=== PATIENT | male | born 1945 | race Caucasian/White ===

== ENCOUNTER → 2019-03-06 | Outpatient (CLI) | payer MEDICARE ==
[~2019-03-06] MED LIST: REGADENOSON 0.4 MG/5 ML SYRINGE ONE
== END | disposition home or self-care (01) ==
LOC: CFH 07:57
PROVIDERS: ATTEND Internal Medicine Cardiovascular Disease
DX: I48.91 Unspecified atrial fibrillation (principal); R94.31 Abnormal electrocardiogram [ECG] [EKG]
CPT/HCPCS: 78452; 93017; A9502; J2785

== ENCOUNTER 2019-04-10 11:58 | Outpatient (CLI) | payer MEDICARE | END 2019-04-10 23:59 | disposition home or self-care (01) | LOC: CVU 11:58 | PROVIDERS: ATTEND Internal Medicine Cardiovascular Disease | DX: I06.1 Rheumatic aortic insufficiency (principal); I06.0 Rheumatic aortic stenosis; R94.31 Abnormal electrocardiogram [ECG] [EKG]; I50.9 Heart failure, unspecified | CPT/HCPCS: 93306 ==

== ENCOUNTER 2019-04-23 19:38 | Inpatient (IN) | payer MEDICARE ==
[~2019-04-23] VITALS: Ht 190.5 cm; Wt 114.4 kg
[2019-04-23] MEDS ORDERED: SPIR25TA5 PO (20:08)
[2019-04-23] MEDS ORDERED: TAMS-11 PO (20:08)
[2019-04-23] MEDS ORDERED: METO25TA35 PO (20:09)
[2019-04-23] MEDS ORDERED: FURO20TA3 PO (20:16)
[2019-04-23] MEDS ORDERED: VIT1CAPS42 PO (20:16)
[2019-04-23] MEDS ORDERED: MELA1TAB22 PO (20:17)
--- NOTE | 2019-04-23 20:25 | NUR ---
THIS IS A 73 YO MALE BIB EMS FROM [place] FOR INCREASED SOB/WORK OF BREATHING "I KNOW THERE'S FLUID IN MY LUNGS AND IN MY BELLY". PATIENT WAS HOSPITALIZED IN DECEMBER FOR PNA AND SEPSIS, THEN HOSPITALIZED LATER ON FOR INCREASED FLUID THROUGHOUT BODY, DENIES CHF. ABDOMEN IS DISTENDED AND FIRM, APPEARS TO BE ASCITIC. PATIENT A&OX4, TACHYPNIC AT 26 BREATHS A MINUTE, LUNG SOUNDS CLEAR IN LEFT, UPPER LOBES IN RIGHT SIDE CLEAR, RIGHT LOWER LOBE IS DIMINISHED/ABSENT, VERY MINIMAL BREATHS SOUNDS AUSCULTATED. STATES COUGH STARTED 2 DAYS AGO. NO FEVERS AT HOME, NO FEVER HERE. ALL MONITORING IN PLACE, SINUS RHYTHM ON MONITOR. CALL LIGHT IN REACH.
[2019-04-23] MEDS ORDERED: SODIUM CHLORIDE FLUSH 10ML SYR IVF ONE (20:30)
--- NOTE | 2019-04-23 21:00 | NUR ---
CONSUMER RELATIONS COMPLAINT CLERK IN ROOM. PATIENT RESTING ON DONN CHAHAL, NAD NOTED, CALL LIGHT IN REACH
[2019-04-23 21:26] LABS: BASOPHILS # (AUTO) 0.04 x10^3/uL (0-0.1); BASOPHILS % (AUTO) 0 % (0-1); EOSINOPHILS # (AUTO) 0.13 x10^3/uL (0-0.4); EOSINOPHILS % (AUTO) 1 % (1-7); LYMPHOCYTES # (AUTO) 0.46 x10^3/uL (1-3.4); LYMPHOCYTES % (AUTO) 4 % (22-44); MD NO; MEAN CORPUSCULAR HEMOGLOBIN 29.8 pg (27.5-34.5); MEAN CORPUSCULAR HGB CONC 34.2 g/dL (33.2-36.2); MEAN CORPUSCULAR VOLUME 87.1 fL (81-97); MEAN PLATELET VOLUME 7.6 fL (7.4-10.4); MONOCYTES # (AUTO) 0.77 x10^3/uL (0.2-0.8); MONOCYTES % (AUTO) 6 % (2-9); NEUTROPHILS # (AUTO) 11.57 x10^3/uL (1.8-6.8); NEUTROPHILS % (AUTO) 89 % (42-75); PLATELET COUNT 403 x10^3/uL (130-400); RED CELL DISTRIBUTION WIDTH 14.1 % (9.4-14.8)
[2019-04-23 21:29] LABS: ALBUMIN 3.2 g/dL (3.4-5.0); ANION GAP 11 mmol/L (5-15); CALCIUM 11.9 mg/dL (8.5-10.1); CHLORIDE 101 mmol/L (98-107)
[2019-04-23 21:34] LABS: CREATININE 1.32 mg/dL (0.7-1.3)
--- NOTE | 2019-04-23 21:37 | NUR ---
BGL 68. PATIENT PROVIDED WITH JUICE AND SANDWICH.
[2019-04-23 21:38] LABS: INTERNATIONAL NORMALIZED RATIO 1.01 (0.93-1.1); PROTHROMBIN TIME 10.7 Seconds (9.6-11.5)
--- NOTE | 2019-04-23 22:24 | NUR ---
PATIENT RESTING ON DONN CHAHAL NAD AT THIS TIME, CALL LIGHT IN REACH
[2019-04-23] MEDS ORDERED: SODIUM CHLORIDE FLUSH 10ML SYR IVF PRN (22:30)
--- NOTE | 2019-04-23 22:52 | NUR ---
REPORT GIVEN TO PEACE SOSA. SHEILA STATES SHE IS TAKING REPORT FOR PRIMARY RN JOE.
[2019-04-23 23:35] VITALS: BP 125/70
[2019-04-24] MEDS ORDERED: LIDODERM 5% PATCH TD PRN (01:00)
[2019-04-24] MEDS ORDERED: ONDANSETRON 2MG/ML, 2ML IVPush PRN (01:00)
[2019-04-24] MEDS ORDERED: TEMAZEPAM 15 MG CAPSULE PO PRN (01:00)
[2019-04-24] MEDS ORDERED: BISACODYL 10 MG SUPP PR PRN (01:00)
[2019-04-24 01:30] VITALS: BP 103/64
[2019-04-24] MEDS: METRONIDAZOLE PMX 500MG/100ML 100 ML IV SCH ×4 (03:05→20:36)
[2019-04-24 06:46] VITALS: BP 118/71
[2019-04-24] MEDS ORDERED: ACETAMINOPHEN 325 MG TABLET PO PRN (07:00)
[2019-04-24] MEDS: HEPARIN 5,000 UNITS/ML, 1ML SQ SCH ×3 (07:00→23:00)
[2019-04-24] MEDS ORDERED: METOPROLOL TARTRATE 50 MG TAB PO SCH (08:00)
[2019-04-24 08:22] LABS: BASOPHILS # (AUTO) 0.03 x10^3/uL (0-0.1); BASOPHILS % (AUTO) 0 % (0-1); EOSINOPHILS # (AUTO) 0.23 x10^3/uL (0-0.4); EOSINOPHILS % (AUTO) 2 % (1-7); LYMPHOCYTES # (AUTO) 0.45 x10^3/uL (1-3.4); LYMPHOCYTES % (AUTO) 4 % (22-44); MD NO; MEAN CORPUSCULAR HEMOGLOBIN 29.7 pg (27.5-34.5); MEAN CORPUSCULAR HGB CONC 33.5 g/dL (33.2-36.2); MEAN CORPUSCULAR VOLUME 88.5 fL (81-97); MEAN PLATELET VOLUME 7.4 fL (7.4-10.4); MONOCYTES # (AUTO) 0.82 x10^3/uL (0.2-0.8); MONOCYTES % (AUTO) 7 % (2-9); NEUTROPHILS % (AUTO) 88 % (42-75); PLATELET COUNT 361 x10^3/uL (130-400); RED CELL DISTRIBUTION WIDTH 14.1 % (9.4-14.8)
[2019-04-24 08:34] LABS: ALANINE AMINOTRANSFERASE 18 U/L (12-78); ANION GAP 9 mmol/L (5-15); CALCIUM 10.9 mg/dL (8.5-10.1); CHLORIDE 104 mmol/L (98-107); CREATININE 1.47 mg/dL (0.7-1.3)
[2019-04-24 08:36] LABS: ALKALINE PHOSPHATASE 121 U/L (45-117); BILIRUBIN,TOTAL 0.4 mg/dL (0.2-1.0); TOTAL PROTEIN 7.7 g/dL (6.4-8.2)
[2019-04-24] MEDS ORDERED: SPIRONOLACTONE 25 MG TABLET PO SCH (09:00)
[2019-04-24] MEDS ORDERED: FUROSEMIDE 40 MG TABLET PO SCH ×2 (09:00)
[2019-04-24] MEDS ORDERED: LIDOCAINE 1%, 10ML ONE ×2 (09:11→09:58)
[2019-04-24 12:21] VITALS: BP 124/68
[2019-04-24] MEDS: CARVEDILOL 6.25 MG TABLET PO SCH (18:10)
[2019-04-24 19:03] VITALS: BP 112/67
[2019-04-24] MEDS: TAMSULOSIN 0.4 MG CAP.ER.24H PO SCH (22:18)
[2019-04-25] VITALS (8 sets, daily range): BP systolic 94–136; BP diastolic 51–76
[2019-04-25] MEDS: METRONIDAZOLE PMX 500MG/100ML 100 ML IV SCH ×4 (02:19→20:27)
[2019-04-25 05:58] LABS: BASOPHILS # (AUTO) 0.04 x10^3/uL (0-0.1); BASOPHILS % (AUTO) 0 % (0-1); EOSINOPHILS # (AUTO) 0.26 x10^3/uL (0-0.4); EOSINOPHILS % (AUTO) 2 % (1-7); LYMPHOCYTES # (AUTO) 0.44 x10^3/uL (1-3.4); LYMPHOCYTES % (AUTO) 3 % (22-44); MD NO; MEAN CORPUSCULAR HEMOGLOBIN 29.9 pg (27.5-34.5); MEAN CORPUSCULAR HGB CONC 33.9 g/dL (33.2-36.2); MEAN CORPUSCULAR VOLUME 88.1 fL (81-97); MONOCYTES # (AUTO) 0.64 x10^3/uL (0.2-0.8); MONOCYTES % (AUTO) 5 % (2-9); NEUTROPHILS # (AUTO) 11.61 x10^3/uL (1.8-6.8); NEUTROPHILS % (AUTO) 89 % (42-75); PLATELET COUNT 341 x10^3/uL (130-400); RED CELL DISTRIBUTION WIDTH 14.1 % (9.4-14.8)
[2019-04-25] MEDS: CARVEDILOL 6.25 MG TABLET PO SCH ×2 (05:59→17:17)
[2019-04-25 06:10] LABS: ALBUMIN 2.9 g/dL (3.4-5.0); CHLORIDE 102 mmol/L (98-107)
[2019-04-25 06:14] LABS: ALANINE AMINOTRANSFERASE 14 U/L (12-78); ALKALINE PHOSPHATASE 119 U/L (45-117); ANION GAP 10 mmol/L (5-15); BILIRUBIN,TOTAL 0.4 mg/dL (0.2-1.0); CALCIUM 11.3 mg/dL (8.5-10.1); CREATININE 1.32 mg/dL (0.7-1.3); TOTAL PROTEIN 7.9 g/dL (6.4-8.2)
[2019-04-25] MEDS: HEPARIN 5,000 UNITS/ML, 1ML SQ SCH ×3 (07:00→22:05)
[2019-04-25] MEDS: FUROSEMIDE 20 MG TABLET PO SCH (07:49)
[2019-04-25] MEDS: SODIUM CHLORIDE 0.9% 1,000 ML IV SCH (08:06)
[2019-04-25] MEDS ORDERED: FUROSEMIDE 40 MG TABLET PO SCH (09:00)
[2019-04-25] MEDS ORDERED: OMNIPAQUE 350 MG/ML, 100ML BOTTLE ONE (10:17)
[2019-04-25] MEDS: TAMSULOSIN 0.4 MG CAP.ER.24H PO SCH (20:27)
[2019-04-26] MEDS: SODIUM CHLORIDE 0.9% 1,000 ML IV SCH (00:30)
[2019-04-26 00:51] VITALS: BP 109/65
[2019-04-26] MEDS: METRONIDAZOLE PMX 500MG/100ML 100 ML IV SCH (03:03)
[2019-04-26 04:55] LABS: BASOPHILS # (AUTO) 0.03 x10^3/uL (0-0.1); BASOPHILS % (AUTO) 0 % (0-1); EOSINOPHILS % (AUTO) 2 % (1-7); LYMPHOCYTES # (AUTO) 0.35 x10^3/uL (1-3.4); LYMPHOCYTES % (AUTO) 3 % (22-44); MD NO; MEAN CORPUSCULAR HEMOGLOBIN 30.1 pg (27.5-34.5); MEAN CORPUSCULAR HGB CONC 33.8 g/dL (33.2-36.2); MEAN PLATELET VOLUME 7.7 fL (7.4-10.4); MONOCYTES # (AUTO) 0.62 x10^3/uL (0.2-0.8); MONOCYTES % (AUTO) 5 % (2-9); NEUTROPHILS # (AUTO) 11.34 x10^3/uL (1.8-6.8); NEUTROPHILS % (AUTO) 90 % (42-75); PLATELET COUNT 358 x10^3/uL (130-400); RED BLOOD COUNT 4.02 x10^6/uL (4.38-5.82); RED CELL DISTRIBUTION WIDTH 13.7 % (9.4-14.8)
[2019-04-26 05:02] LABS: ALBUMIN 2.8 g/dL (3.4-5.0); ANION GAP 9 mmol/L (5-15); CALCIUM 11.4 mg/dL (8.5-10.1); CHLORIDE 102 mmol/L (98-107)
[2019-04-26 05:05] LABS: ALANINE AMINOTRANSFERASE 13 U/L (12-78); ALKALINE PHOSPHATASE 114 U/L (45-117); BILIRUBIN,TOTAL 0.2 mg/dL (0.2-1.0); CREATININE 1.16 mg/dL (0.7-1.3); TOTAL PROTEIN 7.4 g/dL (6.4-8.2)
[2019-04-26] MEDS: CARVEDILOL 6.25 MG TABLET PO SCH ×2 (06:32→17:30)
[2019-04-26] MEDS: HEPARIN 5,000 UNITS/ML, 1ML SQ SCH ×3 (06:36→23:00)
[2019-04-26 07:05] VITALS: BP 119/68
[2019-04-26] MEDS: FUROSEMIDE 20 MG TABLET PO SCH (08:57)
[2019-04-26] MEDS: TAMSULOSIN 0.4 MG CAP.ER.24H PO SCH (08:58)
[2019-04-26 14:18] VITALS: BP 116/68
[2019-04-26] MEDS ORDERED: PAMIDRONATE 30 MG in SODIUM CHLORIDE 0.9% 250 ML IV SCH (15:00)
[2019-04-26] MEDS ORDERED: PAMIDRONATE 3 MG/ML, 10ML IV SCH (15:00)
[2019-04-26 19:17] VITALS: BP 102/64
[2019-04-27] VITALS: BP 99/61
[2019-04-27] MEDS ORDERED: CALCIUM CARBONATE 500 MG TAB.CHEW PO PRN (00:30)
[2019-04-27 06:04] LABS: BASOPHILS # (AUTO) 0.02 x10^3/uL (0-0.1); BASOPHILS % (AUTO) 0 % (0-1); EOSINOPHILS # (AUTO) 0.23 x10^3/uL (0-0.4); EOSINOPHILS % (AUTO) 2 % (1-7); LYMPHOCYTES # (AUTO) 0.45 x10^3/uL (1-3.4); LYMPHOCYTES % (AUTO) 3 % (22-44); MD NO; MEAN CORPUSCULAR HEMOGLOBIN 29.9 pg (27.5-34.5); MEAN CORPUSCULAR HGB CONC 33.8 g/dL (33.2-36.2); MEAN CORPUSCULAR VOLUME 88.4 fL (81-97); MEAN PLATELET VOLUME 7.9 fL (7.4-10.4); MONOCYTES # (AUTO) 0.72 x10^3/uL (0.2-0.8); MONOCYTES % (AUTO) 5 % (2-9); NEUTROPHILS # (AUTO) 12.06 x10^3/uL (1.8-6.8); NEUTROPHILS % (AUTO) 90 % (42-75); PLATELET COUNT 365 x10^3/uL (130-400); RED BLOOD COUNT 4.03 x10^6/uL (4.38-5.82); RED CELL DISTRIBUTION WIDTH 14.2 % (9.4-14.8)
[2019-04-27 06:06] LABS: ANION GAP 10 mmol/L (5-15); CALCIUM 12.2 mg/dL (8.5-10.1); CHLORIDE 103 mmol/L (98-107)
[2019-04-27 06:07] LABS: CREATININE 1.27 mg/dL (0.7-1.3)
[2019-04-27] MEDS: HEPARIN 5,000 UNITS/ML, 1ML SQ SCH (06:27)
[2019-04-27 06:28] VITALS: BP 120/69
[2019-04-27] MEDS: CARVEDILOL 6.25 MG TABLET PO SCH (06:31)
[2019-04-27 06:51] VITALS: BP 106/65
[2019-04-27] MEDS: FUROSEMIDE 20 MG TABLET PO SCH (08:35)
[2019-04-27] MEDS ORDERED: CALCITONIN SALMON 200 UNITS/ML, 2ML IM ONE (09:30)
[2019-04-27] MEDS ORDERED: FURO20TA3 PO ×2 (10:11)
[2019-04-27] MEDS ORDERED: SPIR25TA5 PO (10:11)
[2019-04-27] MEDS ORDERED: CARV6.2512 PO ×2 (10:11)
== END 2019-04-27 13:30 | disposition home or self-care (01) | DRG 683 ==
LOC: ED 22:47 → EDIP 23:16 → 3N 23:28
PROVIDERS: ADMIT Internal Medicine; ATTEND Internal Medicine
PROC: 0W993ZZ Drainage of Right Pleural Cavity, Percutaneous Approach (ICD-10-PCS; principal; 2019-04-24)
PROC: 0W9G3ZZ Drainage of Peritoneal Cavity, Percutaneous Approach (ICD-10-PCS; 2019-04-24)
DX: N17.0 Acute kidney failure with tubular necrosis (principal); K76.6 Portal hypertension; J91.8 Pleural effusion in other conditions classified elsewhere; E87.1 Hypo-osmolality and hyponatremia; R18.8 Other ascites; C88.0 Waldenstrom macroglobulinemia; E87.5 Hyperkalemia; I50.9 Heart failure, unspecified; D64.9 Anemia, unspecified; E16.2 Hypoglycemia, unspecified; E66.9 Obesity, unspecified; Z68.31 Body mass index [BMI] 31.0-31.9, adult; E83.52 Hypercalcemia; I11.0 Hypertensive heart disease with heart failure; I48.91 Unspecified atrial fibrillation; N40.0 Benign prostatic hyperplasia without lower urinary tract symptoms; Z80.8 Family history of malignant neoplasm of other organs or systems; Z85.828 Personal history of other malignant neoplasm of skin; Z96.642 Presence of left artificial hip joint
CPT/HCPCS: 32555; 36415; 49083; 71045; 74177; 80048; 80053; 82040; 82042; 82784; 82945; 83615; 83880; 83883; 83986; 84155; 84157; 84165; 85025; 85610; 85730; 87070; 87205; 88112; 88305; 88341; 88342; 89051; 93005; 99285; G0378; J2405; Q9967; J0630; J2430; J7030; J7050

== ENCOUNTER 2019-05-03 13:21 | Inpatient (IN) | payer MEDICARE ==
[~2019-05-03] VITALS: Ht 190.5 cm; Wt 109.9 kg
[~2019-05-03 13:21] MED LIST changes: +CARV6.2512 PO; +FURO20TA3 PO; +MELA1TAB22 PO; +METO25TA35 PO; -REGADENOSON 0.4 MG/5 ML SYRINGE ONE; +SPIR25TA5 PO; +TAMS-11 PO; +VIT1CAPS42 PO
--- NOTE | 2019-05-03 14:14 | NUR ---
PT CAME IN CO OF SOB, FATIGUE, AND TROUBLE BREATHING. PT SAYS "MY CHEST AND ABDOMEN HAS FILLED UP WITH FLUID". MD IS BEDSIDE FOR ASSESSMENT. PT IS CONNECTED TO [employer]ID[employer] MONITOR AND PULSE OX.
[2019-05-03] MEDS ORDERED: SODIUM CHLORIDE FLUSH 10ML SYR IVF ONE (14:30)
[2019-05-03 14:37] LABS: MICROSCOPIC INDICATED
[2019-05-03 14:48] LABS: INTERNATIONAL NORMALIZED RATIO 0.96 (0.93-1.1); PROTHROMBIN TIME 10.2 Seconds (9.6-11.5)
[2019-05-03 14:51] LABS: ALANINE AMINOTRANSFERASE 17 U/L (12-78); ALBUMIN 2.9 g/dL (3.4-5.0); ANION GAP 15 mmol/L (5-15); CALCIUM 10.5 mg/dL (8.5-10.1); CHLORIDE 102 mmol/L (98-107); CREATININE 1.53 mg/dL (0.7-1.3)
[2019-05-03 14:57] LABS: ALKALINE PHOSPHATASE 119 U/L (45-117); BILIRUBIN,TOTAL 0.4 mg/dL (0.2-1.0); TOTAL PROTEIN 7.7 g/dL (6.4-8.2)
[2019-05-03 15:06] LABS: BASOPHILS # (AUTO) 0.03 x10^3/uL (0-0.1); BASOPHILS % (AUTO) 0 % (0-1); EOSINOPHILS # (AUTO) 0.15 x10^3/uL (0-0.4); EOSINOPHILS % (AUTO) 1 % (1-7); LYMPHOCYTES # (AUTO) 0.47 x10^3/uL (1-3.4); LYMPHOCYTES % (AUTO) 3 % (22-44); MD SCAN; MEAN CORPUSCULAR HEMOGLOBIN 30.2 pg (27.5-34.5); MEAN CORPUSCULAR VOLUME 88.8 fL (81-97); MEAN PLATELET VOLUME 7.2 fL (7.4-10.4); MONOCYTES % (AUTO) 4 % (2-9); NEUTROPHILS # (AUTO) 12.44 x10^3/uL (1.8-6.8); NEUTROPHILS % (AUTO) 91 % (42-75); PLATELET COUNT 446 x10^3/uL (130-400); RED BLOOD COUNT 4.15 x10^6/uL (4.38-5.82); RED CELL DISTRIBUTION WIDTH 14.8 % (9.4-14.8)
[2019-05-03] MEDS ORDERED: LIDOCAINE 1%, 10ML ONE (15:08)
[2019-05-03 15:16] LABS: CULTURE INDICATED? NO
--- NOTE | 2019-05-03 15:20 | NUR ---
PT TO RADIOLOGY AT THIS TIME FOR PROCEDURE
[2019-05-03] MEDS ORDERED: SODIUM CHLORIDE 0.9% 1,000ML IVBOLUS ONE (15:30)
[2019-05-03] MEDS ORDERED: PIPERACILLIN/TAZO/PMX 3.375GM 50 ML IV ONE (16:00)
[2019-05-03] MEDS ORDERED: PIPERACILLIN/TAZO/PMX 3.375GM 50 ML ONE (16:01)
--- NOTE | 2019-05-03 16:43 | NUR ---
BREAK RN: DR CORADO IN ROOM UPDATING PATIENT. VS STABLE. CARPENTER AND JOINER ON. NSR NOTED. CALL LIGHT IN PLACE. WILL CONTINUE TO MONITOR.
--- NOTE | 2019-05-03 16:49 | NUR ---
REPORT GIVEN TO GORDON. HAND
--- NOTE | 2019-05-03 16:57 | NUR ---
PT RESTING IN [facility]. WATER PROVIDED. PT EDUCATED ON PLAN OF CARE
--- NOTE | 2019-05-03 17:35 | NUR ---
ADMITTING HOSPITALIST IN TO SEE PT AT THIS TIME
[2019-05-03] MEDS ORDERED: ONDANSETRON ODT 4 MG PO PRN (18:00)
[2019-05-03] MEDS ORDERED: ACETAMINOPHEN 325 MG TABLET PO PRN (18:00)
[2019-05-03] MEDS ORDERED: POLYETHYLENE GLYCOL 17 GM PACKET PO PRN (18:00)
[2019-05-03] MEDS ORDERED: GUAIFENESIN/DM 200-20MG, 10ML UDC PO PRN (18:00)
[2019-05-03] MEDS ORDERED: BISACODYL 10 MG SUPP PR PRN (18:00)
[2019-05-03 19:30] VITALS: BP 110/65
[2019-05-03] MEDS: SODIUM CHLORIDE 0.9% 1,000 ML IV SCH (22:00)
[2019-05-03] MEDS: CARVEDILOL 6.25 MG TABLET PO SCH (22:02)
[2019-05-03] MEDS: TAMSULOSIN 0.4 MG CAP.ER.24H PO SCH ×2 (22:06→22:26)
[2019-05-03] MEDS: CEFTRIAXONE PMX 1GM/50ML 50 ML IV SCH (22:12)
[2019-05-03] MEDS: AZITHROMYCIN 500 MG in SODIUM CHLORIDE 0.9% 250 ML IV SCH (23:42)
[2019-05-04 00:51] VITALS: BP 110/61
[2019-05-04 01:16] LABS: CLOSTRIDIUM DIFFICILE ANTIGEN NEGATIVE; CLOSTRIDIUM DIFFICILE TOXIN NEGATIVE (Negative)
[2019-05-04 04:43] LABS: MEAN CORPUSCULAR HEMOGLOBIN 29.6 pg (27.5-34.5); MEAN CORPUSCULAR HGB CONC 33.5 g/dL (33.2-36.2); MEAN CORPUSCULAR VOLUME 88.4 fL (81-97); MEAN PLATELET VOLUME 7.3 fL (7.4-10.4); PLATELET COUNT 364 x10^3/uL (130-400); RED BLOOD COUNT 3.78 x10^6/uL (4.38-5.82); RED CELL DISTRIBUTION WIDTH 14.9 % (9.4-14.8)
[2019-05-04 04:54] LABS: ANION GAP 12 mmol/L (5-15); CHLORIDE 105 mmol/L (98-107); CREATININE 1.25 mg/dL (0.7-1.3)
[2019-05-04 05:48] LABS: BASOPHILS # (AUTO) 0.02 x10^3/uL (0-0.1); BASOPHILS % (AUTO) 0 % (0-1); EOSINOPHILS # (AUTO) 0.19 x10^3/uL (0-0.4); EOSINOPHILS % (AUTO) 1 % (1-7); LYMPHOCYTES # (AUTO) 0.41 x10^3/uL (1-3.4); LYMPHOCYTES % (AUTO) 3 % (22-44); MD SCAN; MONOCYTES # (AUTO) 0.56 x10^3/uL (0.2-0.8); MONOCYTES % (AUTO) 4 % (2-9); NEUTROPHILS # (AUTO) 12.28 x10^3/uL (1.8-6.8); NEUTROPHILS % (AUTO) 91 % (42-75)
[2019-05-04 07:53] VITALS: BP 111/67
[2019-05-04] MEDS: SODIUM CHLORIDE 0.9% 1,000 ML IV SCH (08:00)
[2019-05-04] MEDS: CARVEDILOL 6.25 MG TABLET PO SCH ×2 (09:00→18:38)
[2019-05-04] MEDS ORDERED: TAMSULOSIN 0.4 MG CAP.ER.24H PO SCH (09:00)
[2019-05-04] MEDS ORDERED: SENNA/DOCUSATE TABLET PO SCH (09:00)
[2019-05-04] MEDS ORDERED: SENNA/DOCUSATE TABLET PO PRN (11:00)
[2019-05-04 12:16] VITALS: BP 110/61
[2019-05-04 18:45] VITALS: BP 108/58
[2019-05-04] MEDS: CEFTRIAXONE PMX 1GM/50ML 50 ML IV SCH (22:09)
[2019-05-04] MEDS ORDERED: TEMAZEPAM 15 MG CAPSULE ONE (23:47)
[2019-05-04] MEDS: AZITHROMYCIN 500 MG in SODIUM CHLORIDE 0.9% 250 ML IV SCH (23:49)
[2019-05-04] MEDS: TEMAZEPAM 15 MG CAPSULE PO PRN (23:50)
[2019-05-05 00:13] VITALS: BP 110/60
[2019-05-05 05:38] LABS: BASOPHILS # (AUTO) 0.03 x10^3/uL (0-0.1); BASOPHILS % (AUTO) 0 % (0-1); EOSINOPHILS # (AUTO) 0.23 x10^3/uL (0-0.4); EOSINOPHILS % (AUTO) 2 % (1-7); LYMPHOCYTES % (AUTO) 4 % (22-44); MD NO; MEAN CORPUSCULAR HGB CONC 33.8 g/dL (33.2-36.2); MEAN CORPUSCULAR VOLUME 88.7 fL (81-97); MEAN PLATELET VOLUME 7.7 fL (7.4-10.4); MONOCYTES # (AUTO) 0.66 x10^3/uL (0.2-0.8); MONOCYTES % (AUTO) 6 % (2-9); NEUTROPHILS # (AUTO) 9.92 x10^3/uL (1.8-6.8); NEUTROPHILS % (AUTO) 88 % (42-75); PLATELET COUNT 344 x10^3/uL (130-400); RED BLOOD COUNT 3.78 x10^6/uL (4.38-5.82); RED CELL DISTRIBUTION WIDTH 14.9 % (9.4-14.8)
[2019-05-05 05:55] LABS: CHLORIDE 105 mmol/L (98-107)
[2019-05-05] MEDS: CARVEDILOL 6.25 MG TABLET PO SCH ×2 (06:00→18:13)
[2019-05-05 06:06] LABS: ALANINE AMINOTRANSFERASE 14 U/L (12-78); ALBUMIN 2.5 g/dL (3.4-5.0); ALKALINE PHOSPHATASE 106 U/L (45-117); ANION GAP 12 mmol/L (5-15); BILIRUBIN,TOTAL 0.3 mg/dL (0.2-1.0); CALCIUM 9.7 mg/dL (8.5-10.1); CREATININE 1.15 mg/dL (0.7-1.3); TOTAL PROTEIN 6.7 g/dL (6.4-8.2)
[2019-05-05] MEDS ORDERED: DEXTROSE 4 GM TAB.CHEW PO PRN (07:30)
[2019-05-05] MEDS ORDERED: GLUCAGON 1 MG IM PRN (07:30)
[2019-05-05 08:04] VITALS: BP 99/63
[2019-05-05] MEDS: DOXYCYCLINE 100 MG in DEXTROSE 5% 250 ML IV SCH ×2 (10:17→23:06)
[2019-05-05] MEDS: SODIUM CHLORIDE FLUSH 10ML SYR IVF SCH ×2 (10:18→21:00)
[2019-05-05 12:50] VITALS: BP 111/68
[2019-05-05] MEDS ORDERED: RASBURICASE IV ONE (13:00)
[2019-05-05] MEDS ORDERED: SODIUM CHLORIDE 0.9% IV ONE (13:00)
[2019-05-05] MEDS: ALLOPURINOL 300 MG TABLET PO SCH (14:31)
[2019-05-05 19:11] VITALS: BP 115/58
[2019-05-05] MEDS ORDERED: TAMSULOSIN 0.4 MG CAP.ER.24H PO SCH (21:00)
[2019-05-05] MEDS: TEMAZEPAM 15 MG CAPSULE PO PRN (22:12)
[2019-05-05] MEDS: CEFTRIAXONE PMX 1GM/50ML 50 ML IV SCH (22:12)
[2019-05-06 01:34] VITALS: BP 107/53
[2019-05-06 05:25] LABS: BASOPHILS # (AUTO) 0.03 x10^3/uL (0-0.1); BASOPHILS % (AUTO) 0 % (0-1); EOSINOPHILS # (AUTO) 0.27 x10^3/uL (0-0.4); EOSINOPHILS % (AUTO) 2 % (1-7); LYMPHOCYTES # (AUTO) 0.44 x10^3/uL (1-3.4); LYMPHOCYTES % (AUTO) 4 % (22-44); MD NO; MEAN CORPUSCULAR HEMOGLOBIN 29.9 pg (27.5-34.5); MEAN CORPUSCULAR HGB CONC 33.7 g/dL (33.2-36.2); MEAN CORPUSCULAR VOLUME 88.6 fL (81-97); MEAN PLATELET VOLUME 7.6 fL (7.4-10.4); MONOCYTES # (AUTO) 0.75 x10^3/uL (0.2-0.8); MONOCYTES % (AUTO) 6 % (2-9); NEUTROPHILS # (AUTO) 11.23 x10^3/uL (1.8-6.8); NEUTROPHILS % (AUTO) 88 % (42-75); PLATELET COUNT 363 x10^3/uL (130-400); RED BLOOD COUNT 3.84 x10^6/uL (4.38-5.82)
[2019-05-06] MEDS: CARVEDILOL 6.25 MG TABLET PO SCH ×2 (05:26→19:36)
[2019-05-06 05:36] LABS: ALBUMIN 2.5 g/dL (3.4-5.0); ANION GAP 13 mmol/L (5-15); CALCIUM 10.1 mg/dL (8.5-10.1); CHLORIDE 106 mmol/L (98-107)
[2019-05-06 05:39] LABS: ALANINE AMINOTRANSFERASE 14 U/L (12-78); ALKALINE PHOSPHATASE 105 U/L (45-117); BILIRUBIN,TOTAL 0.3 mg/dL (0.2-1.0); CREATININE 1.25 mg/dL (0.7-1.3); TOTAL PROTEIN 6.8 g/dL (6.4-8.2)
[2019-05-06 07:23] VITALS: BP 96/53
[2019-05-06] MEDS: ALLOPURINOL 300 MG TABLET PO SCH ×2 (09:32→21:32)
[2019-05-06] MEDS: D5%-0.45% NACL 1,000 ML IV SCH (09:33)
[2019-05-06] MEDS: SODIUM CHLORIDE FLUSH 10ML SYR IVF SCH ×2 (09:33→21:00)
[2019-05-06] MEDS: DOXYCYCLINE 100MG TABLET PO SCH ×2 (12:20→21:32)
[2019-05-06 12:51] VITALS: BP 107/63
[2019-05-06 18:48] VITALS: BP 117/67
[2019-05-06] MEDS: TEMAZEPAM 15 MG CAPSULE PO PRN (21:32)
[2019-05-06] MEDS: TAMSULOSIN 0.4 MG CAP.ER.24H PO SCH (21:34)
[2019-05-06] MEDS: CEFTRIAXONE PMX 1GM/50ML 50 ML IV SCH (21:54)
[2019-05-07 01:56] VITALS: BP 124/70
[2019-05-07 04:41] LABS: BASOPHILS # (AUTO) 0.01 x10^3/uL (0-0.1); BASOPHILS % (AUTO) 0 % (0-1); EOSINOPHILS # (AUTO) 0.25 x10^3/uL (0-0.4); EOSINOPHILS % (AUTO) 2 % (1-7); LYMPHOCYTES # (AUTO) 0.47 x10^3/uL (1-3.4); LYMPHOCYTES % (AUTO) 4 % (22-44); MD NO; MEAN CORPUSCULAR HEMOGLOBIN 29.8 pg (27.5-34.5); MEAN CORPUSCULAR HGB CONC 33.6 g/dL (33.2-36.2); MEAN CORPUSCULAR VOLUME 88.9 fL (81-97); MEAN PLATELET VOLUME 7.5 fL (7.4-10.4); MONOCYTES # (AUTO) 0.67 x10^3/uL (0.2-0.8); MONOCYTES % (AUTO) 6 % (2-9); NEUTROPHILS # (AUTO) 10.62 x10^3/uL (1.8-6.8); NEUTROPHILS % (AUTO) 88 % (42-75); PLATELET COUNT 379 x10^3/uL (130-400); RED BLOOD COUNT 3.96 x10^6/uL (4.38-5.82); RED CELL DISTRIBUTION WIDTH 15.1 % (9.4-14.8)
[2019-05-07 04:51] LABS: ANION GAP 13 mmol/L (5-15); CALCIUM 10.7 mg/dL (8.5-10.1); CHLORIDE 104 mmol/L (98-107)
[2019-05-07 04:53] LABS: CREATININE 1.26 mg/dL (0.7-1.3)
[2019-05-07] MEDS: D5%-0.45% NACL 1,000 ML IV SCH (05:26)
[2019-05-07] MEDS: CARVEDILOL 6.25 MG TABLET PO SCH ×2 (05:26→17:09)
[2019-05-07 07:39] VITALS: BP 104/62
[2019-05-07] MEDS ORDERED: LIDOCAINE 1%, 10ML ONE (10:45)
[2019-05-07] MEDS ORDERED: FENTANYL PF 100 MCG/2ML ONE (11:04)
[2019-05-07] MEDS ORDERED: NALOXONE 1 MG/ML, 2ML ONE (11:04)
[2019-05-07] MEDS ORDERED: MIDAZOLAM 1 MG/ML, 5ML ONE ×2 (11:04)
[2019-05-07] MEDS ORDERED: FLUMAZENIL 0.1 MG/1 ML, 5ML ONE (11:04)
[2019-05-07] MEDS: ALLOPURINOL 300 MG TABLET PO SCH ×2 (12:51→20:27)
[2019-05-07] MEDS: SODIUM CHLORIDE FLUSH 10ML SYR IVF SCH ×2 (12:51→20:26)
[2019-05-07] MEDS: DOXYCYCLINE 100MG TABLET PO SCH ×2 (12:51→20:27)
[2019-05-07 13:48] VITALS: BP 108/67
[2019-05-07 18:58] VITALS: BP 111/68
[2019-05-07] MEDS: TAMSULOSIN 0.4 MG CAP.ER.24H PO SCH (20:27)
[2019-05-07] MEDS: CEFTRIAXONE PMX 1GM/50ML 50 ML IV SCH (22:03)
[2019-05-07] MEDS: TEMAZEPAM 15 MG CAPSULE PO PRN (23:56)
[2019-05-08 02:06] VITALS: BP 103/59
[2019-05-08] MEDS: D5%-0.45% NACL 1,000 ML IV SCH ×2 (02:19→20:24)
[2019-05-08 04:35] LABS: BASOPHILS # (AUTO) 0.01 x10^3/uL (0-0.1); BASOPHILS % (AUTO) 0 % (0-1); EOSINOPHILS # (AUTO) 0.21 x10^3/uL (0-0.4); EOSINOPHILS % (AUTO) 2 % (1-7); LYMPHOCYTES # (AUTO) 0.48 x10^3/uL (1-3.4); LYMPHOCYTES % (AUTO) 5 % (22-44); MD NO; MEAN CORPUSCULAR HEMOGLOBIN 29.7 pg (27.5-34.5); MEAN CORPUSCULAR HGB CONC 33.4 g/dL (33.2-36.2); MEAN PLATELET VOLUME 7.6 fL (7.4-10.4); MONOCYTES % (AUTO) 6 % (2-9); NEUTROPHILS # (AUTO) 9.32 x10^3/uL (1.8-6.8); NEUTROPHILS % (AUTO) 88 % (42-75); PLATELET COUNT 350 x10^3/uL (130-400); RED BLOOD COUNT 3.79 x10^6/uL (4.38-5.82); RED CELL DISTRIBUTION WIDTH 15.4 % (9.4-14.8)
[2019-05-08 04:48] LABS: ANION GAP 15 mmol/L (5-15); CALCIUM 10.3 mg/dL (8.5-10.1); CHLORIDE 105 mmol/L (98-107)
[2019-05-08 04:49] LABS: CREATININE 1.39 mg/dL (0.7-1.3)
[2019-05-08] MEDS: CARVEDILOL 6.25 MG TABLET PO SCH ×2 (06:04→17:50)
[2019-05-08 09:09] VITALS: BP 99/59
[2019-05-08] MEDS: DOXYCYCLINE 100MG TABLET PO SCH ×2 (11:16→20:18)
[2019-05-08] MEDS: SODIUM CHLORIDE FLUSH 10ML SYR IVF SCH ×2 (11:17→20:19)
[2019-05-08] MEDS: ALLOPURINOL 300 MG TABLET PO SCH ×2 (11:17→20:17)
[2019-05-08] MEDS: FUROSEMIDE 40 MG/4 ML IVPush SCH (12:53)
[2019-05-08 13:06] VITALS: BP 111/65
[2019-05-08] MEDS ORDERED: LIDOCAINE 1%, 10ML ONE (14:29)
[2019-05-08 19:06] VITALS: BP 111/63
[2019-05-08] MEDS: TAMSULOSIN 0.4 MG CAP.ER.24H PO SCH (20:18)
[2019-05-08] MEDS: TEMAZEPAM 15 MG CAPSULE PO PRN (20:31)
[2019-05-08] MEDS: CEFTRIAXONE PMX 1GM/50ML 50 ML IV SCH (22:20)
[2019-05-09 02:51] VITALS: BP 101/54
[2019-05-09] MEDS: CARVEDILOL 6.25 MG TABLET PO SCH ×2 (05:50→17:15)
[2019-05-09 06:39] LABS: CHLORIDE 103 mmol/L (98-107)
[2019-05-09 06:40] LABS: MEAN CORPUSCULAR HEMOGLOBIN 29.9 pg (27.5-34.5); MEAN CORPUSCULAR HGB CONC 33.5 g/dL (33.2-36.2); MEAN CORPUSCULAR VOLUME 89.3 fL (81-97); MEAN PLATELET VOLUME 7.6 fL (7.4-10.4); PLATELET COUNT 322 x10^3/uL (130-400); RED BLOOD COUNT 3.76 x10^6/uL (4.38-5.82); RED CELL DISTRIBUTION WIDTH 15.2 % (9.4-14.8)
[2019-05-09 06:41] LABS: MD YES
[2019-05-09 06:43] LABS: <PLATELET ESTIMATE> ADEQUATE; <PLT MORPHOLOGY> NORMAL PLT MORPH; <RBC MORPHOLOGY> NORMAL; BAND#(MANUAL) 0.21 x10^3/uL; BANDS%(MANUAL) 2 % (0-7); EOS#(MANUAL) 0.31 x10^3/uL (0.0-0.4); EOS% (MANUAL) 3 % (1-7); LYMPH#(MANUAL) 0.52 x10^3/uL (1-3.4); LYMPHS% (MANUAL) 5 % (22-44); MONOS#(MANUAL) 0.31 x10^3/uL (0.3-2.7); MONOS% (MANUAL) 3 % (2-9); SEG#(MANUAL) 9.05 x10^3/uL (1.8-6.8); SEGS% (MANUAL) 87 % (42-75)
[2019-05-09 06:45] LABS: ANION GAP 15 mmol/L (5-15); CREATININE 1.28 mg/dL (0.7-1.3)
[2019-05-09 07:10] VITALS: BP 101/61
[2019-05-09] MEDS: SODIUM CHLORIDE FLUSH 10ML SYR IVF SCH ×2 (09:00→20:35)
[2019-05-09] MEDS: FUROSEMIDE 40 MG/4 ML IVPush SCH (09:38)
[2019-05-09] MEDS: DOXYCYCLINE 100MG TABLET PO SCH ×2 (09:38→20:35)
[2019-05-09] MEDS: ALLOPURINOL 300 MG TABLET PO SCH ×2 (09:38→20:35)
[2019-05-09] MEDS: TAMSULOSIN 0.4 MG CAP.ER.24H PO SCH ×2 (09:38→20:34)
[2019-05-09] MEDS ORDERED: PAMIDRONATE 3 MG/ML, 10ML IV ONE (11:30)
[2019-05-09] MEDS ORDERED: PAMIDRONATE 90 MG in SODIUM CHLORIDE 0.9% 500 ML IV ONE (12:00)
[2019-05-09 13:11] VITALS: BP 102/62
[2019-05-09] MEDS: D5%-0.45% NACL 1,000 ML IV SCH (17:15)
[2019-05-09 19:37] VITALS: BP 116/99
[2019-05-09] MEDS: TEMAZEPAM 15 MG CAPSULE PO PRN (20:34)
[2019-05-09] MEDS: CEFTRIAXONE PMX 1GM/50ML 50 ML IV SCH (22:07)
[2019-05-10 01:49] VITALS: BP 115/58
[2019-05-10 04:36] LABS: BASOPHILS % (AUTO) 0 % (0-1); EOSINOPHILS # (AUTO) 0.21 x10^3/uL (0-0.4); EOSINOPHILS % (AUTO) 2 % (1-7); LYMPHOCYTES # (AUTO) 0.42 x10^3/uL (1-3.4); LYMPHOCYTES % (AUTO) 4 % (22-44); MD NO; MEAN CORPUSCULAR HEMOGLOBIN 29.8 pg (27.5-34.5); MEAN CORPUSCULAR HGB CONC 33.7 g/dL (33.2-36.2); MEAN CORPUSCULAR VOLUME 88.5 fL (81-97); MEAN PLATELET VOLUME 7.6 fL (7.4-10.4); MONOCYTES # (AUTO) 0.58 x10^3/uL (0.2-0.8); MONOCYTES % (AUTO) 5 % (2-9); NEUTROPHILS # (AUTO) 9.55 x10^3/uL (1.8-6.8); NEUTROPHILS % (AUTO) 89 % (42-75); PLATELET COUNT 316 x10^3/uL (130-400); RED BLOOD COUNT 3.74 x10^6/uL (4.38-5.82)
[2019-05-10 04:44] LABS: ANION GAP 11 mmol/L (5-15); CALCIUM 11.5 mg/dL (8.5-10.1); CHLORIDE 102 mmol/L (98-107); CREATININE 1.18 mg/dL (0.7-1.3)
[2019-05-10] MEDS: CARVEDILOL 6.25 MG TABLET PO SCH ×2 (05:50→16:45)
[2019-05-10 07:05] VITALS: BP 101/62
[2019-05-10] MEDS: ALLOPURINOL 300 MG TABLET PO SCH ×2 (07:37→20:31)
[2019-05-10] MEDS: FUROSEMIDE 40 MG/4 ML IVPush SCH (07:37)
[2019-05-10] MEDS: DOXYCYCLINE 100MG TABLET PO SCH ×2 (07:37→20:31)
[2019-05-10] MEDS: SODIUM CHLORIDE FLUSH 10ML SYR IVF SCH ×2 (07:37→20:32)
[2019-05-10] MEDS ORDERED: PAMIDRONATE 60 MG in SODIUM CHLORIDE 0.9% 500 ML IV ONE (09:00)
[2019-05-10 13:45] VITALS: BP 106/61
[2019-05-10] MEDS: D5%-0.45% NACL 1,000 ML IV SCH (14:14)
[2019-05-10 18:27] VITALS: BP 98/63
[2019-05-10] MEDS: TAMSULOSIN 0.4 MG CAP.ER.24H PO SCH (20:31)
[2019-05-10] MEDS: TEMAZEPAM 15 MG CAPSULE PO PRN (20:36)
[2019-05-10] MEDS: DEXTROSE 50%, 50ML SYRINGE IVPush PRN (21:13)
[2019-05-10] MEDS: ALUMINUM/MAG/SIMETHICONE 30 ML UDC PO PRN (22:00)
[2019-05-10] MEDS: CEFTRIAXONE PMX 1GM/50ML 50 ML IV SCH (22:01)
[2019-05-10] MEDS ORDERED: SODIUM CHLORIDE IV SCH (22:30)
[2019-05-10] MEDS ORDERED: DEXTROSE 10% IV SCH (22:30)
[2019-05-11 00:46] VITALS: BP 112/64
[2019-05-11] MEDS: DEXTROSE 50%, 50ML SYRINGE IVPush PRN (01:57)
[2019-05-11] MEDS: ALUMINUM/MAG/SIMETHICONE 30 ML UDC PO PRN ×3 (02:12→19:54)
[2019-05-11 04:50] LABS: BASOPHILS % (AUTO) 0 % (0-1); EOSINOPHILS # (AUTO) 0.21 x10^3/uL (0-0.4); EOSINOPHILS % (AUTO) 2 % (1-7); LYMPHOCYTES # (AUTO) 0.44 x10^3/uL (1-3.4); LYMPHOCYTES % (AUTO) 4 % (22-44); MD NO; MEAN CORPUSCULAR HEMOGLOBIN 29.7 pg (27.5-34.5); MEAN CORPUSCULAR HGB CONC 33.2 g/dL (33.2-36.2); MEAN CORPUSCULAR VOLUME 89.6 fL (81-97); MEAN PLATELET VOLUME 7.6 fL (7.4-10.4); MONOCYTES # (AUTO) 0.49 x10^3/uL (0.2-0.8); MONOCYTES % (AUTO) 5 % (2-9); NEUTROPHILS # (AUTO) 9.29 x10^3/uL (1.8-6.8); NEUTROPHILS % (AUTO) 89 % (42-75); PLATELET COUNT 339 x10^3/uL (130-400); RED BLOOD COUNT 3.75 x10^6/uL (4.38-5.82); RED CELL DISTRIBUTION WIDTH 15.1 % (9.4-14.8)
[2019-05-11 05:01] LABS: ALBUMIN 2.3 g/dL (3.4-5.0); ANION GAP 18 mmol/L (5-15); CALCIUM 11.1 mg/dL (8.5-10.1); CHLORIDE 101 mmol/L (98-107)
[2019-05-11 05:05] LABS: ALANINE AMINOTRANSFERASE 14 U/L (12-78); ALKALINE PHOSPHATASE 109 U/L (45-117); BILIRUBIN,TOTAL 0.5 mg/dL (0.2-1.0); CREATININE 1.26 mg/dL (0.7-1.3); TOTAL PROTEIN 6.5 g/dL (6.4-8.2)
[2019-05-11 05:50] VITALS: BP 97/53
[2019-05-11] MEDS: CARVEDILOL 6.25 MG TABLET PO SCH ×2 (05:52→17:47)
[2019-05-11 07:41] VITALS: BP 109/67
[2019-05-11] MEDS: TAMSULOSIN 0.4 MG CAP.ER.24H PO SCH ×3 (09:00→20:49)
[2019-05-11] MEDS: DOXYCYCLINE 100MG TABLET PO SCH ×2 (09:18→20:48)
[2019-05-11] MEDS: ALLOPURINOL 300 MG TABLET PO SCH ×2 (09:18→20:48)
[2019-05-11] MEDS: SODIUM CHLORIDE FLUSH 10ML SYR IVF SCH ×2 (09:18→19:54)
[2019-05-11] MEDS: FUROSEMIDE 40 MG/4 ML IVPush SCH (09:18)
[2019-05-11 12:11] VITALS: BP 113/66
[2019-05-11] MEDS: DEXTROSE 10% IV SCH (13:39)
[2019-05-11] MEDS: SODIUM CHLORIDE IV SCH (13:39)
[2019-05-11 18:44] VITALS: BP 100/56
[2019-05-11] MEDS: TEMAZEPAM 15 MG CAPSULE PO PRN (20:48)
[2019-05-11] MEDS: CEFTRIAXONE PMX 1GM/50ML 50 ML IV SCH (22:41)
[2019-05-12 00:50] VITALS: BP 120/66
[2019-05-12] MEDS: ALUMINUM/MAG/SIMETHICONE 30 ML UDC PO PRN ×2 (03:07→08:32)
[2019-05-12 04:47] LABS: BASOPHILS % (AUTO) 0 % (0-1); EOSINOPHILS # (AUTO) 0.21 x10^3/uL (0-0.4); EOSINOPHILS % (AUTO) 2 % (1-7); LYMPHOCYTES # (AUTO) 0.51 x10^3/uL (1-3.4); LYMPHOCYTES % (AUTO) 5 % (22-44); MD NO; MEAN CORPUSCULAR HEMOGLOBIN 29.7 pg (27.5-34.5); MEAN CORPUSCULAR HGB CONC 33.1 g/dL (33.2-36.2); MEAN CORPUSCULAR VOLUME 89.7 fL (81-97); MEAN PLATELET VOLUME 7.7 fL (7.4-10.4); MONOCYTES # (AUTO) 0.69 x10^3/uL (0.2-0.8); MONOCYTES % (AUTO) 6 % (2-9); NEUTROPHILS # (AUTO) 9.36 x10^3/uL (1.8-6.8); NEUTROPHILS % (AUTO) 87 % (42-75); PLATELET COUNT 320 x10^3/uL (130-400); RED BLOOD COUNT 3.67 x10^6/uL (4.38-5.82); RED CELL DISTRIBUTION WIDTH 14.9 % (9.4-14.8)
[2019-05-12 04:59] LABS: CHLORIDE 99 mmol/L (98-107)
[2019-05-12 05:06] LABS: ALANINE AMINOTRANSFERASE 14 U/L (12-78); ALBUMIN 2.4 g/dL (3.4-5.0); ALKALINE PHOSPHATASE 113 U/L (45-117); ANION GAP 19 mmol/L (5-15); BILIRUBIN,TOTAL 0.3 mg/dL (0.2-1.0); CALCIUM 11.4 mg/dL (8.5-10.1); CREATININE 1.23 mg/dL (0.7-1.3); TOTAL PROTEIN 6.4 g/dL (6.4-8.2)
[2019-05-12] MEDS: SODIUM CHLORIDE IV SCH (05:33)
[2019-05-12] MEDS: CARVEDILOL 6.25 MG TABLET PO SCH ×2 (05:33→16:33)
[2019-05-12] MEDS: OMEPRAZOLE 20 MG CAPSULE.DR PO SCH (05:33)
[2019-05-12] MEDS: DEXTROSE 10% IV SCH (05:33)
[2019-05-12 07:44] VITALS: BP 110/68
[2019-05-12] MEDS: DOXYCYCLINE 100MG TABLET PO SCH ×2 (08:04→19:57)
[2019-05-12] MEDS: ALLOPURINOL 300 MG TABLET PO SCH ×2 (08:04→19:57)
[2019-05-12] MEDS: FUROSEMIDE 40 MG/4 ML IVPush SCH (08:05)
[2019-05-12] MEDS: SODIUM CHLORIDE FLUSH 10ML SYR IVF SCH (08:08)
[2019-05-12 09:10] LABS: BILIRUBIN, DIRECT 0.1 mg/dL (0.1-0.2)
[2019-05-12] MEDS ORDERED: OMNIPAQUE 350 MG/ML, 100ML BOTTLE ONE (11:27)
[2019-05-12 13:27] VITALS: BP 100/57
[2019-05-12 19:43] VITALS: BP 114/68
[2019-05-12] MEDS: TEMAZEPAM 15 MG CAPSULE PO PRN (19:57)
[2019-05-12] MEDS: TAMSULOSIN 0.4 MG CAP.ER.24H PO SCH (19:57)
[2019-05-12] MEDS: CEFTRIAXONE PMX 1GM/50ML 50 ML IV SCH (21:27)
[2019-05-13 01:57] VITALS: BP 115/62
[2019-05-13 04:31] LABS: BASOPHILS # (AUTO) 0.02 x10^3/uL (0-0.1); BASOPHILS % (AUTO) 0 % (0-1); EOSINOPHILS # (AUTO) 0.19 x10^3/uL (0-0.4); EOSINOPHILS % (AUTO) 2 % (1-7); LYMPHOCYTES # (AUTO) 0.42 x10^3/uL (1-3.4); LYMPHOCYTES % (AUTO) 4 % (22-44); MD NO; MEAN CORPUSCULAR HEMOGLOBIN 29.7 pg (27.5-34.5); MEAN CORPUSCULAR HGB CONC 32.9 g/dL (33.2-36.2); MEAN CORPUSCULAR VOLUME 90.3 fL (81-97); MEAN PLATELET VOLUME 7.5 fL (7.4-10.4); MONOCYTES # (AUTO) 0.64 x10^3/uL (0.2-0.8); MONOCYTES % (AUTO) 6 % (2-9); NEUTROPHILS # (AUTO) 10.11 x10^3/uL (1.8-6.8); NEUTROPHILS % (AUTO) 89 % (42-75); PLATELET COUNT 330 x10^3/uL (130-400); RED BLOOD COUNT 3.65 x10^6/uL (4.38-5.82); RED CELL DISTRIBUTION WIDTH 15.3 % (9.4-14.8)
[2019-05-13 04:40] LABS: ALANINE AMINOTRANSFERASE 12 U/L (12-78); ALBUMIN 2.3 g/dL (3.4-5.0); ANION GAP 15 mmol/L (5-15); CALCIUM 11.1 mg/dL (8.5-10.1); CHLORIDE 98 mmol/L (98-107); CREATININE 1.26 mg/dL (0.7-1.3)
[2019-05-13 04:42] LABS: ALKALINE PHOSPHATASE 117 U/L (45-117); BILIRUBIN,TOTAL 0.2 mg/dL (0.2-1.0); TOTAL PROTEIN 6.5 g/dL (6.4-8.2)
[2019-05-13] MEDS: OMEPRAZOLE 20 MG CAPSULE.DR PO SCH (05:40)
[2019-05-13] MEDS: CARVEDILOL 6.25 MG TABLET PO SCH ×2 (05:40→17:37)
[2019-05-13 07:14] VITALS: BP 103/57
[2019-05-13] MEDS: FUROSEMIDE 40 MG/4 ML IVPush SCH (09:05)
[2019-05-13] MEDS: DOXYCYCLINE 100MG TABLET PO SCH (09:05)
[2019-05-13] MEDS: ALLOPURINOL 300 MG TABLET PO SCH ×2 (09:05→20:32)
[2019-05-13] MEDS ORDERED: ACETAMINOPHEN 325 MG TABLET PO PRN (10:13)
[2019-05-13] MEDS ORDERED: HYDROCORTISONE 100 MG INJ. IV PRN (10:30)
[2019-05-13] MEDS ORDERED: DIPHENHYDRAMINE 50 MG/ML, 1ML IVPush PRN ×2 (10:30→13:30)
[2019-05-13] MEDS ORDERED: SODIUM CHLORIDE 0.9%, 250ML IV ONE (11:00)
[2019-05-13] MEDS ORDERED: predniSONE 50MG TABLET PO ONE (11:30)
[2019-05-13] MEDS ORDERED: RITUXIMAB IV ONE ×2 (12:00→14:00)
[2019-05-13] MEDS ORDERED: SODIUM CHLORIDE 0.9% IV ONE ×2 (12:00→14:00)
[2019-05-13 12:54] VITALS: BP 103/57
[2019-05-13] MEDS ORDERED: DEXAMETHASONE IVPB ONE (13:30)
[2019-05-13] MEDS ORDERED: SODIUM CHLORIDE 0.9% IVPB ONE (13:30)
[2019-05-13] MEDS ORDERED: ONDANSETRON IVPB ONE (13:30)
[2019-05-13] MEDS ORDERED: ACETAMINOPHEN 325 MG TABLET PO ONE (13:30)
[2019-05-13] MEDS ORDERED: FAMOTIDINE 20 MG/2 ML IV ONE (13:30)
[2019-05-13 19:58] VITALS: BP 106/60
[2019-05-13] MEDS ORDERED: CYCLOPHOSPHAMIDE 1,800 MG in SODIUM CHLORIDE 0.9% 250 ML IV ONE (20:00)
[2019-05-13] MEDS: TAMSULOSIN 0.4 MG CAP.ER.24H PO SCH (20:32)
[2019-05-14 01:51] VITALS: BP 99/56
[2019-05-14 04:37] LABS: MEAN CORPUSCULAR HEMOGLOBIN 29.9 pg (27.5-34.5); MEAN CORPUSCULAR HGB CONC 33.8 g/dL (33.2-36.2); MEAN CORPUSCULAR VOLUME 88.5 fL (81-97); MEAN PLATELET VOLUME 7.6 fL (7.4-10.4); PLATELET COUNT 304 x10^3/uL (130-400); RED BLOOD COUNT 3.51 x10^6/uL (4.38-5.82); RED CELL DISTRIBUTION WIDTH 15.1 % (9.4-14.8)
[2019-05-14 04:54] LABS: ALBUMIN 2.5 g/dL (3.4-5.0); ANION GAP 8 mmol/L (5-15); CALCIUM 8.7 mg/dL (8.5-10.1); CHLORIDE 98 mmol/L (98-107)
[2019-05-14 04:58] LABS: ALANINE AMINOTRANSFERASE 15 U/L (12-78); ALKALINE PHOSPHATASE 114 U/L (45-117); BILIRUBIN,TOTAL 0.3 mg/dL (0.2-1.0); CREATININE 1.18 mg/dL (0.7-1.3); TOTAL PROTEIN 6.5 g/dL (6.4-8.2)
[2019-05-14 05:50] LABS: BASOPHILS % (AUTO) 0 % (0-1); EOSINOPHILS % (AUTO) 0 % (1-7); LYMPHOCYTES # (AUTO) 0.18 x10^3/uL (1-3.4); LYMPHOCYTES % (AUTO) 1 % (22-44); MD SCAN; MONOCYTES # (AUTO) 0.16 x10^3/uL (0.2-0.8); MONOCYTES % (AUTO) 1 % (2-9); NEUTROPHILS # (AUTO) 11.93 x10^3/uL (1.8-6.8); NEUTROPHILS % (AUTO) 97 % (42-75)
[2019-05-14] MEDS: CARVEDILOL 6.25 MG TABLET PO SCH (06:25)
[2019-05-14] MEDS: OMEPRAZOLE 20 MG CAPSULE.DR PO SCH (06:25)
[2019-05-14 07:16] VITALS: BP_SYST 100; BP_SYST 95; BP_DIAS 44; BP_DIAS 48
[2019-05-14] MEDS ORDERED: SODIUM POLYSTYRENE SULFONATE ORAL SUSP PO ONE (08:30)
[2019-05-14] MEDS ORDERED: INSULIN REGULAR 100 UNITS/ML, 3ML VIAL IVPush ONE (08:30)
[2019-05-14] MEDS ORDERED: DEXTROSE 50%, 50ML SYRINGE IVPush ONE (08:30)
[2019-05-14] MEDS: FUROSEMIDE 40 MG/4 ML IVPush SCH (08:41)
[2019-05-14] MEDS: ALLOPURINOL 300 MG TABLET PO SCH ×2 (08:41→21:03)
[2019-05-14 12:22] VITALS: BP_SYST 100; BP_SYST 87; BP_DIAS 50; BP_DIAS 55
[2019-05-14] MEDS ORDERED: LOPERAMIDE 2 MG CAPSULE PO PRN (15:30)
[2019-05-14] MEDS: predniSONE 50MG TABLET PO SCH (15:54)
[2019-05-14] MEDS: MIDODRINE 5 MG TABLET PO SCH ×3 (15:55→21:02)
[2019-05-14 16:24] LABS: ANION GAP 8 mmol/L (5-15); CALCIUM 7.9 mg/dL (8.5-10.1); CHLORIDE 99 mmol/L (98-107); CREATININE 1.23 mg/dL (0.7-1.3)
[2019-05-14] MEDS: CARVEDILOL 3.125 MG TABLET PO SCH (18:00)
[2019-05-14 19:24] VITALS: BP 99/61
[2019-05-14] MEDS: TEMAZEPAM 15 MG CAPSULE PO PRN (21:03)
[2019-05-14] MEDS: TAMSULOSIN 0.4 MG CAP.ER.24H PO SCH (21:03)
[2019-05-15 03:02] VITALS: BP 94/54
[2019-05-15 03:17] LABS: ALANINE AMINOTRANSFERASE 15 U/L (12-78); ALBUMIN 2.4 g/dL (3.4-5.0); ANION GAP 9 mmol/L (5-15); CALCIUM 7.2 mg/dL (8.5-10.1); CHLORIDE 98 mmol/L (98-107); CREATININE 1.33 mg/dL (0.7-1.3)
[2019-05-15 03:19] LABS: ALKALINE PHOSPHATASE 102 U/L (45-117); BILIRUBIN,TOTAL 0.1 mg/dL (0.2-1.0); TOTAL PROTEIN 6.6 g/dL (6.4-8.2)
[2019-05-15 03:20] LABS: MEAN CORPUSCULAR HEMOGLOBIN 29.7 pg (27.5-34.5); MEAN CORPUSCULAR HGB CONC 33.3 g/dL (33.2-36.2); MEAN CORPUSCULAR VOLUME 89.1 fL (81-97); MEAN PLATELET VOLUME 7.7 fL (7.4-10.4); PLATELET COUNT 235 x10^3/uL (130-400); RED BLOOD COUNT 3.29 x10^6/uL (4.38-5.82); RED CELL DISTRIBUTION WIDTH 15.4 % (9.4-14.8)
[2019-05-15 03:33] LABS: BASOPHILS % (AUTO) 0 % (0-1); EOSINOPHILS % (AUTO) 0 % (1-7); LYMPHOCYTES # (AUTO) 0.12 x10^3/uL (1-3.4); LYMPHOCYTES % (AUTO) 1 % (22-44); MD SCAN; MONOCYTES # (AUTO) 0.03 x10^3/uL (0.2-0.8); MONOCYTES % (AUTO) 0 % (2-9); NEUTROPHILS # (AUTO) 12.29 x10^3/uL (1.8-6.8); NEUTROPHILS % (AUTO) 99 % (42-75)
[2019-05-15] MEDS: OMEPRAZOLE 20 MG CAPSULE.DR PO SCH (07:41)
[2019-05-15] MEDS: CARVEDILOL 3.125 MG TABLET PO SCH ×2 (07:41→18:00)
[2019-05-15 07:44] VITALS: BP 95/49
[2019-05-15] MEDS: MIDODRINE 5 MG TABLET PO SCH ×3 (09:00→21:49)
[2019-05-15] MEDS: FUROSEMIDE 40 MG/4 ML IVPush SCH (09:00)
[2019-05-15] MEDS: ALLOPURINOL 300 MG TABLET PO SCH ×2 (09:00→21:49)
[2019-05-15 09:05] VITALS: BP 92/51
[2019-05-15] MEDS ORDERED: FUROSEMIDE 40 MG/4 ML IV ONE (14:00)
[2019-05-15] MEDS: chlorPROMAZINE 25 MG/ML, 1ML IM ONE (14:30)
[2019-05-15 15:44] VITALS: BP 91/43
[2019-05-15 16:08] LABS: BASOPHILS # (AUTO) 0.04 x10^3/uL (0-0.1); BASOPHILS % (AUTO) 0 % (0-1); EOSINOPHILS % (AUTO) 0 % (1-7); LYMPHOCYTES # (AUTO) 0.18 x10^3/uL (1-3.4); LYMPHOCYTES % (AUTO) 2 % (22-44); MD NO; MEAN CORPUSCULAR HEMOGLOBIN 29.7 pg (27.5-34.5); MEAN CORPUSCULAR HGB CONC 33.3 g/dL (33.2-36.2); MEAN CORPUSCULAR VOLUME 89.3 fL (81-97); MEAN PLATELET VOLUME 7.4 fL (7.4-10.4); MONOCYTES # (AUTO) 1.02 x10^3/uL (0.2-0.8); MONOCYTES % (AUTO) 9 % (2-9); NEUTROPHILS # (AUTO) 10.64 x10^3/uL (1.8-6.8); NEUTROPHILS % (AUTO) 90 % (42-75); PLATELET COUNT 266 x10^3/uL (130-400); RED BLOOD COUNT 3.38 x10^6/uL (4.38-5.82); RED CELL DISTRIBUTION WIDTH 15.2 % (9.4-14.8)
[2019-05-15 16:13] LABS: ALBUMIN 2.5 g/dL (3.4-5.0); ANION GAP 9 mmol/L (5-15); CALCIUM 6.9 mg/dL (8.5-10.1); CHLORIDE 100 mmol/L (98-107)
[2019-05-15 16:16] LABS: ALANINE AMINOTRANSFERASE 17 U/L (12-78); ALKALINE PHOSPHATASE 102 U/L (45-117); BILIRUBIN,TOTAL 0.2 mg/dL (0.2-1.0); CREATININE 1.39 mg/dL (0.7-1.3); TOTAL PROTEIN 6.8 g/dL (6.4-8.2)
[2019-05-15] MEDS: predniSONE 50MG TABLET PO SCH (16:54)
[2019-05-15 19:14] VITALS: BP 108/70
[2019-05-15] MEDS: TAMSULOSIN 0.4 MG CAP.ER.24H PO SCH (21:49)
[2019-05-15] MEDS: TEMAZEPAM 15 MG CAPSULE PO PRN (22:35)
[2019-05-16] MEDS ORDERED: chlorPROMAZINE 25 MG/ML, 2ML IM ONE (00:30)
[2019-05-16] MEDS: chlorPROMAZINE 25 MG/ML, 1ML IM ONE (00:40)
[2019-05-16 00:56] VITALS: BP 102/59
[2019-05-16 04:51] LABS: ALANINE AMINOTRANSFERASE 20 U/L (12-78); ALBUMIN 2.5 g/dL (3.4-5.0); ANION GAP 8 mmol/L (5-15); CALCIUM 6.4 mg/dL (8.5-10.1); CHLORIDE 99 mmol/L (98-107); CREATININE 1.24 mg/dL (0.7-1.3)
[2019-05-16 04:54] LABS: ALKALINE PHOSPHATASE 97 U/L (45-117); BILIRUBIN,TOTAL 0.1 mg/dL (0.2-1.0); TOTAL PROTEIN 6.6 g/dL (6.4-8.2)
[2019-05-16 04:58] LABS: MEAN CORPUSCULAR HEMOGLOBIN 29.7 pg (27.5-34.5); MEAN CORPUSCULAR HGB CONC 33.3 g/dL (33.2-36.2); MEAN CORPUSCULAR VOLUME 89.4 fL (81-97); MEAN PLATELET VOLUME 7.4 fL (7.4-10.4); PLATELET COUNT 238 x10^3/uL (130-400); RED BLOOD COUNT 3.27 x10^6/uL (4.38-5.82); RED CELL DISTRIBUTION WIDTH 15.2 % (9.4-14.8)
[2019-05-16] MEDS: OMEPRAZOLE 20 MG CAPSULE.DR PO SCH (05:18)
[2019-05-16] MEDS: CARVEDILOL 3.125 MG TABLET PO SCH (05:19)
[2019-05-16 05:38] LABS: MD YES
[2019-05-16 05:40] LABS: BAND#(MANUAL) 0.37 x10^3/uL; BANDS%(MANUAL) 4 % (0-7); LYMPH#(MANUAL) 0.19 x10^3/uL (1-3.4); LYMPHS% (MANUAL) 2 % (22-44); MONOS#(MANUAL) 0.65 x10^3/uL (0.3-2.7); MONOS% (MANUAL) 7 % (2-9); SEG#(MANUAL) 8.09 x10^3/uL (1.8-6.8); SEGS% (MANUAL) 87 % (42-75)
[2019-05-16 05:41] LABS: <PLATELET ESTIMATE> ADEQUATE; <PLT MORPHOLOGY> NORMAL PLT MORPH; ANISOCYTOSIS 1+
[2019-05-16 07:59] VITALS: BP 97/57
[2019-05-16] MEDS: ALLOPURINOL 300 MG TABLET PO SCH (08:58)
[2019-05-16] MEDS: MIDODRINE 5 MG TABLET PO SCH (08:58)
[2019-05-16] MEDS ORDERED: FUROSEMIDE 40 MG/4 ML IVPush SCH (09:00)
[2019-05-16] MEDS ORDERED: ONDA4TAB13 PO (12:08)
[2019-05-16] MEDS ORDERED: CARV3.1212 PO (12:08)
[2019-05-16] MEDS ORDERED: PRED50TA PO (12:08)
[2019-05-16] MEDS ORDERED: TORS10TA4 PO (12:08)
[2019-05-16] MEDS ORDERED: MIDO5TAB9 PO (12:08)
[2019-05-16] MEDS ORDERED: OMEP-110 PO (12:08)
[2019-05-16] MEDS ORDERED: ALLO300T PO (12:08)
[2019-05-16 12:30] VITALS: BP 98/56
== END 2019-05-16 14:20 | disposition home or self-care (01) | DRG 871 ==
LOC: ED 13:43 → EDIP 16:58 → 4NW 18:20 → 3N 05-15 14:03
PROVIDERS: ADMIT Internal Medicine; ATTEND Hospitalist
PROC: 0W993ZZ Drainage of Right Pleural Cavity, Percutaneous Approach (ICD-10-PCS; principal; 2019-05-03)
PROC: 0DBV3ZX Excision of Mesentery, Percutaneous Approach, Diagnostic (ICD-10-PCS; 2019-05-07)
PROC: 0W9G3ZZ Drainage of Peritoneal Cavity, Percutaneous Approach (ICD-10-PCS; 2019-05-08)
PROC: 02HV33Z Insertion of Infusion Device into Superior Vena Cava, Percutaneous Approach (ICD-10-PCS; 2019-05-12)
PROC: B5181ZA Fluoroscopy of Superior Vena Cava using Low Osmolar Contrast, Guidance (ICD-10-PCS; 2019-05-12)
PROC: B548ZZA Ultrasonography of Superior Vena Cava, Guidance (ICD-10-PCS; 2019-05-12)
DX: A41.9 Sepsis, unspecified organism (principal); J18.9 Pneumonia, unspecified organism; E43 Unspecified severe protein-calorie malnutrition; I50.33 Acute on chronic diastolic (congestive) heart failure; K65.2 Spontaneous bacterial peritonitis; N17.0 Acute kidney failure with tubular necrosis; E88.3 Tumor lysis syndrome; J95.811 Postprocedural pneumothorax; K76.6 Portal hypertension; J91.8 Pleural effusion in other conditions classified elsewhere; R18.8 Other ascites; E87.1 Hypo-osmolality and hyponatremia; C83.30 Diffuse large B-cell lymphoma, unspecified site; C78.6 Secondary malignant neoplasm of retroperitoneum and peritoneum; D64.9 Anemia, unspecified; E16.2 Hypoglycemia, unspecified; E83.51 Hypocalcemia; I11.0 Hypertensive heart disease with heart failure; I48.91 Unspecified atrial fibrillation; K80.20 Calculus of gallbladder without cholecystitis without obstruction; N40.0 Benign prostatic hyperplasia without lower urinary tract symptoms; R09.02 Hypoxemia; Z80.8 Family history of malignant neoplasm of other organs or systems; Z85.828 Personal history of other malignant neoplasm of skin; Z93.3 Colostomy status; E87.5 Hyperkalemia; Z96.642 Presence of left artificial hip joint; Z96.659 Presence of unspecified artificial knee joint; Z68.30 Body mass index [BMI] 30.0-30.9, adult; C88.0 Waldenstrom macroglobulinemia
CPT/HCPCS: 32555; 36415; 36573; 49083; 49180; 71045; 71260; 76700; 77012; 80048; 80053; 80074; 81001; 82232; 82248; 82306; 82397; 82533; 82962; 83605; 83615; 83735; 83880; 83970; 84100; 84132; 84145; 84550; 85025; 85610; 85810; 87040; 87070; 87205; 87324; 87806; 88305; 88341; 88342; 88360; 88377; 89051; 93005; 96365; 99156; 99157; 99291; G0378; J0456; J0696; J1100; J1815; J1940; J2250; J2405; J2543; J2783; J3010; J3230; J7060; J9070; Q0162; Q9967; C1751; G0475; J1200; J2310; J2430; J3490; J7030; J7040; J7050; J7512; J9000; J9312; J9370

== ENCOUNTER → 2019-08-01 | Outpatient (CLI) | payer MEDICARE ==
[~2019-08-01] MED LIST changes: +ALLO300T PO; +CARV3.1212 PO; +MIDO5TAB9 PO; +OMEP-110 PO; +ONDA4TAB13 PO; +PRED50TA PO; +TORS10TA4 PO
== END | disposition home or self-care (01) ==
LOC: PETCFH 12:09
PROVIDERS: ATTEND Specialist
DX: C83.39 Diffuse large B-cell lymphoma, extranodal and solid organ sites (principal); C88.0 Waldenstrom macroglobulinemia; J90 Pleural effusion, not elsewhere classified; Z96.642 Presence of left artificial hip joint
CPT/HCPCS: 78815; A9552

== ENCOUNTER 2019-09-26 08:20 | Outpatient (CLI) | payer MEDICARE | END 2019-09-26 23:59 | disposition home or self-care (01) | LOC: PETCFH 08:20 | PROVIDERS: ATTEND Specialist | DX: C88.0 Waldenstrom macroglobulinemia (principal); C83.39 Diffuse large B-cell lymphoma, extranodal and solid organ sites; J90 Pleural effusion, not elsewhere classified | CPT/HCPCS: 78815; A9552 ==

== ENCOUNTER 2020-05-15 12:36 | Outpatient (CLI) | payer MEDICARE, BC | END 2020-05-15 23:59 | disposition home or self-care (01) | LOC: PETCFH 12:36 | PROVIDERS: ATTEND Specialist | DX: C83.39 Diffuse large B-cell lymphoma, extranodal and solid organ sites (principal); J90 Pleural effusion, not elsewhere classified | CPT/HCPCS: 78815; A9552 ==